=== PATIENT | male | born 1995 | race Caucasian/White ===

== ENCOUNTER 2018-07-07 20:37 | Emergency (ER) | payer MEDICAID ==
[~2018-07-07] VITALS: Ht 180.3 cm; Wt 109.0 kg
[~2018-07-07 20:37] MED LIST: ALBU6.7H INH; ALBU8HFA PO; AZIT250T PO; PRED10TA PO; PRED50TA PO
[2018-07-07] MEDS ORDERED: ipratropium/albuterol 3ml nebule NEB ONE (20:45)
[2018-07-07] MEDS ORDERED: methylPREDNISolone sod succ 125mg/2ml vial IM ONE (21:00)
[2018-07-07] MEDS ORDERED: ALBU8.5H8 INH (21:25)
[2018-07-07] MEDS ORDERED: PRED20TA PO (21:25)
[2018-07-07 21:37] VITALS: BP 116/74
== END 2018-07-07 21:39 | disposition home or self-care (01) ==
LOC: ER 20:37
DX: J45.909 Unspecified asthma, uncomplicated (principal); Z79.2 Long term (current) use of antibiotics; Z79.899 Other long term (current) drug therapy
CPT/HCPCS: 94640; 94760; 96372; 99283; J2930

== ENCOUNTER 2018-09-06 11:41 | Emergency (ER) | payer MEDICAID ==
[~2018-09-06] VITALS: Ht 180.3 cm; Wt 103.6 kg
[~2018-09-06 11:41] MED LIST changes: +ALBU8.5H8 INH
[2018-09-06 12:25] LABS: BASOPHILS % (AUTO) 0.2 % (0-1); EOSINOPHILS % (AUTO) 0.5 % (0-6); HEMATOCRIT 47.5 % (42.0-52.0); HEMOGLOBIN 16.2 g/dl (14.0-17.9); LYMPHOCYTES # (AUTO) 0.7 X10'3 (1.1-4.8); LYMPHOCYTES % (AUTO) 9.5 % (21-51); MEAN CORPUSCULAR HEMOGLOBIN 28.9 PG (27.0-31.0); MEAN CORPUSCULAR VOLUME 84.8 FL (78-98); MONOCYTES # (AUTO) 1.2 X10'3 (0-0.9); MONOCYTES % (AUTO) 16.5 % (2-12); NEUTROPHILS # (AUTO) 5.4 X10'3 (1.8-7.7); NEUTROPHILS % (AUTO) 73.3 % (42-75); PLATELET COUNT 229 X10'3 (140-440); RED CELL DISTRIBUTION WIDTH 13.7 % (11.5-14.5); WHITE BLOOD COUNT 7.4 X10'3 (4.5-11.0)
[2018-09-06] MEDS ORDERED: predniSONE 20 mg tablet PO ONE (12:35)
[2018-09-06] MEDS ORDERED: ipratropium/albuterol 3ml nebule NEB ONE (12:35)
[2018-09-06 12:38] LABS: ALANINE AMINOTRANSFERASE 55 U/L (12-78); ALBUMIN 3.9 G/DL (3.4-5.0); ALBUMIN/GLOBULIN RATIO 0.9 (1.1-1.5); ALKALINE PHOSPHATASE 73 IU/L (46-116); ANION GAP 14 (8-16); ASPARTATE AMINO TRANSFERASE 26 U/L (10-37); BILIRUBIN,TOTAL 0.8 MG/DL (0.1-1.0); BLOOD UREA NITROGEN 14 MG/DL (7-18); BUN/CREATININE RATIO 11.9 (5.4-32.0); CALCIUM 9.4 MG/DL (8.5-10.1); CHLORIDE 99 MMOL/L (99-107); CREATININE 1.18 MG/DL (0.60-1.10); GLUCOSE 101 MG/DL (70-104); POTASSIUM 3.5 MMOL/L (3.5-5.1); SODIUM 137 MMOL/L (135-145); TOTAL CARBON DIOXIDE 24.3 MMOL/L (24-32); TOTAL PROTEIN 8.1 G/DL (6.4-8.2); eGFR 76 ML/MIN
[2018-09-06 12:49] LABS: INR 1.1 INR; PARTIAL THROMBOPLASTIN TIME 33 SECONDS (22-32); PROTHROMBIN TIME 10.7 SECONDS (9.0-12.0)
[2018-09-06] MEDS ORDERED: PRED20TA PO (13:24)
[2018-09-06] MEDS ORDERED: AZIT250T83 PO (13:24)
[2018-09-06 13:40] VITALS: BP 115/78
== END 2018-09-06 13:41 | disposition home or self-care (01) ==
LOC: ER 11:42
DX: J45.901 Unspecified asthma with (acute) exacerbation (principal); R79.1 Abnormal coagulation profile; Z79.899 Other long term (current) drug therapy
CPT/HCPCS: 36415; 71045; 80053; 84484; 85025; 85610; 85730; 93005; 94640; 94760; 99284; J7512

== ENCOUNTER 2019-05-25 22:13 | Emergency (ER) | payer MEDICAID ==
[~2019-05-25] VITALS: Ht 180.3 cm; Wt 103.6 kg
[~2019-05-25 22:13] MED LIST changes: -ALBU6.7H INH; +ALBU6.7H9 INH
[2019-05-25] MEDS ORDERED: ipratropium/albuterol 3ml nebule NEB STA (22:20)
[2019-05-25] MEDS ORDERED: albuterol 2.5 MG/3 ML nebule CONTNEB PRN (22:20)
[2019-05-25] MEDS ORDERED: methylPREDNISolone sod succ 125mg/2ml vial IV ONE (22:25)
[2019-05-25] MEDS ORDERED: ipratropium/albuterol 3ml nebule ONE (22:25)
[2019-05-25 23:58] VITALS: BP 136/69
[2019-05-26] MEDS ORDERED: ROBDML PO (00:03)
[2019-05-26] MEDS ORDERED: PRED20TA PO (00:03)
[2019-05-26] MEDS ORDERED: BENZ-16 PO (00:03)
== END 2019-05-26 00:15 | disposition home or self-care (01) ==
LOC: ER 22:14
DX: J45.909 Unspecified asthma, uncomplicated (principal); J06.9 Acute upper respiratory infection, unspecified; Z79.899 Other long term (current) drug therapy
CPT/HCPCS: 87502; 87503; 94640; 94644; 94760; 96374; 99285; J2930

== ENCOUNTER 2019-08-28 08:16 | Emergency (ER) | payer MEDICAID ==
[~2019-08-28] VITALS: Ht 180.3 cm; Wt 103.6 kg
[2019-08-28] MEDS ORDERED: ipratropium/albuterol 3ml nebule NEB ONE (08:25)
[2019-08-28 08:26] VITALS: BP 149/94
[2019-08-28] MEDS ORDERED: PRED50TA PO (08:50)
[2019-08-28] MEDS ORDERED: ALBU18HF2 INH (08:51)
== END 2019-08-28 09:25 | disposition home or self-care (01) ==
LOC: ER 08:16
DX: J45.901 Unspecified asthma with (acute) exacerbation (principal); Z79.899 Other long term (current) drug therapy
CPT/HCPCS: 94640; 94760; 99283